=== PATIENT | male | born 1990 | race Caucasian/White ===

== ENCOUNTER 2016-08-23 19:13 | Emergency (ER) | payer OTHER ==
[2016-08-23] MEDS ORDERED: ONDANSETRON 4MG/2ML VIAL (J2405) As Ordered ONE (20:40)
[2016-08-23 21:03] LABS: BASO % 0.2 % (0.0-1.0); EOS # 0.1 K/mm3 (0.0-0.50); EOS % 0.4 % (0.0-3.0); LARGE UNSTAINED CELL # 0.1 K/mm3 (0.0-0.4); LARGE UNSTAINED CELL % 0.8 % (0.0-4.0); LYMPH # 0.6 K/mm3 (1.5-6.5); LYMPH % 4.8 % (24.0-44.0); MEAN CORPUSCULAR HEMOGLOBIN 32.7 pg (27.0-33.0); MEAN CORPUSCULAR HGB CONC 35.7 g/dl (32.0-36.5); MEAN CORPUSCULAR VOLUME 91.7 fl (80.0-96.0); MONO # 0.5 K/mm3 (0.0-0.8); MONO % 3.9 % (0.0-5.0); NEUTROPHILS % 89.9 % (36.0-66.0); PLATELET COUNT, AUTOMATED 323 k/mm3 (150-450); RED CELL DISTRIBUTION WIDTH 11.8 % (11.5-14.5); WHITE BLOOD COUNT 13.4 K/mm3 (4.0-10.0)
[2016-08-23 21:45] LABS: ANION GAP 10 MEQ/L (8-16); BLOOD UREA NITROGEN 18 MG/DL (7-18); CALCIUM LEVEL 10.5 MG/DL (8.5-10.1); CARBON DIOXIDE LEVEL 26 MEQ/L (21-32); CHLORIDE LEVEL 106 MEQ/L (98-107); CREATININE FOR GFR 1.23 MG/DL (0.70-1.30); GLOMERULAR FILTRATION RATE > 60.0 (>60); GLUCOSE, FASTING 106 MG/DL (70-105); SODIUM LEVEL 142 MEQ/L (136-145)
--- NOTE | 2016-08-23 22:51 | EDDOCDS ---
Nurse's Notes [facility] Name: Cheko Rousseau Age: 25 yrs Sex: Male : 1990 Arrival Date: 08/23/2016 Time: 19:13 Bed 17 Private MD: Joel Ernandez [facility] Diagnosis: Other and unspecified noninfective gastroenteritis and colitis Presentation: 08/23 19:28 Presenting complaint: Patient states: Nausea, vomiting and diarrhea for the past ko2 24hours. Recently returned from [place] last night for a wedding this past Monday. Per pt people from the wedding are also vomiting. Adult Sepsis Screening: The patient does not have new or worsening altered mentation. Patient's respiratory rate is less than 22. Systolic blood pressure is greater than 100. Patient has a qSOFA score of 0- Negative Sepsis Screen. Suicide/Homicide risk assessment- the patient denies having any suicidal and/or homicidal ideations and does not present with any other emotional, behavioral or mental health complaints. 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 Transition of care: patient was not received from another setting of care. Care prior to arrival: See EMS report. 19:28 Acuity: GANESH Level 3 ko2 19:28 Method Of Arrival: Ambulance ko2 Triage Assessment: 19:32 General: Appears in no apparent distress. Pain: Denies pain. Pt Declines HIV testing. ko2 The patient is triaged at the bedside. See Assessment in Nurses Notes section of ED record. Neurological: No deficits noted. Respiratory: Airway is patent Respiratory effort is even, unlabored, Respiratory pattern is regular. GI: No deficits noted. Abdomen is non- distended Reports diarrhea, nausea, vomiting. Derm: Skin is normal. Musculoskeletal: Range of motion intact in all extremities. Historical: - Allergies: No known drug Allergies; - Home Meds: 1. lidocaine patch 2. naproxen 500 mg Oral tab 3. Tylenol 325 mg Oral tab 2 tabs every 4-6 hours - PMHx: back pain; - PSHx: Knee surgery- Left; Knee surgery- Right; - Social history: Smoking status: Patient states former smoker of tobacco. No barriers to communication noted, The patient speaks fluent Kiswahili, Speaks appropriately for age. - Family history: Not pertinent. - : The pt / caregiver states he / she is not on anticoagulants. Home medication list is obtained from the patient. - Exposure Risk Screening:: None identified. Screenin:34 Screening information is obtained from the patient. Fall risk: No risks identified. ko2 Assistance ADL's: requires no assistance with activities of daily living. Abuse/DV Screen: The patient / caregiver reports he/she is: not in a situation that causes fear, pain or injury. Nutritional screening: No deficits noted. Advance Directives: Currently, there is no health care proxy. There is no active DNR order. There is no living will. There is no Power of Control Room Supervisor. home support is adequate. Assessment: 19:34 General: See triage assessment. ko2 20:38 General: Appears in no apparent distress, Behavior is cooperative. Neurological: Level af2 of Consciousness is awake, alert, obeys commands. Respiratory: Airway is patent Respiratory effort is even, unlabored. GI: Abdomen is non- distended Bowel sounds present X 4 quads. Abd is soft and non tender X 4 quads. Reports cramping, diarrhea, upper abd pain, nausea, vomiting. Derm: Skin is pale. 21:14 General: Appears in no apparent distress, Behavior is cooperative. Neurological: Level ko2 of Consciousness is awake, alert, obeys commands. Respiratory: No deficits noted. GI:. Derm: Skin is pale. 22:48 General: Appears in no apparent distress, Behavior is cooperative. Pain: Location: ko2 abdomen. Neurological: Level of Consciousness is awake, alert, obeys commands. Respiratory: No deficits noted. GI: Abdomen is non- distended. Derm: Skin is pale. Vital Signs: 19:26 BP 141 / 89; Pulse 108; Resp 20; Temp 98.8(O); Pulse Ox 93% on R/A; Weight 83.91 kg; ls3 Height 71 in. (180.34 cm); Pain 6/10; 22:36 BP 132 / 84; Pulse 87; Resp 18; Temp 99.3(O); Pulse Ox 100% on R/A; Pain 0/10; kathie 19:26 Body Mass Index 25.80 (83.91 kg, 180.34 cm) ls3 Vitals: 19:35 Log In Time N/A - ambulance arrival. ko2 ED Course: 19:15 Patient visited by Teddy Goff, Nailer Operator. ml3 19:15 [facility] is Private Physician. ml3 19:15 Patient moved to Waiting ml3 19:16 Mark Lang RN is Primary Nurse. ml3 19:16 Patient moved to 17 ml3 19:25 Mark Dior DO is Attending Physician. mm11 19:25 Patient visited by Mark Dior DO. mm11 19:27 Patient visited by Meredith Romero PCA. ls3 19:29 Triage Initiated ko2 19:42 Patient visited by Mark Dior DO. mm11 20:01 Jennifer Persaud,NATALIA is Primary Nurse. ko2 20:07 Primary Nurse role handed off by Mark Lang RN sls1 20:38 Patient visited by Yessenia Ferrari RN. af2 20:38 BMP Sent. af2 20:38 CBC with Diff Sent. af2 20:39 Patient visited by Yessenia Ferrari RN. af2 20:39 Inserted saline lock: 20 gauge in right antecubital area and blood collected. The af2 patient tolerated the procedure well. 21:15 Patient visited by Jennifer Persaud RN. ko2 22:15 Patient visited by Jennifer Persaud RN. ko2 22:19 [facility] is Referral Physician. mm11 22:37 Patient visited by Reena Olivera PCA. kathie 22:49 The patient / caregiver is instructed regarding the plan of care and ED course. ko2 22:49 Discontinued lock intact, bleeding controlled, pressure dressing applied, No ko2 redness/swelling at site. No procedures done that require assistance. Administered Medications: 20:38 Drug: LR 1000 ml [lactated ringers intravenous solution] Route: IV; Rate: bolus; Site: af2 right antecubital; 20:47 Drug: Ondansetron 4 mg [ondansetron HCl 2 mg/mL intravenous solution (2 mL)] Route: af2 IVP; Site: right antecubital; 21:15 Follow up: Response: Nausea is decreased ko2 Order Results: Lab Order: CBC with Diff; SPEC'M 08/23/16 20:36 Test: WHITE BLOOD COUNT; Value: 13.4; Range: 4.0-10.0; Abnormal: Above high normal; Units: K/mm3; Status: F Test: RED BLOOD COUNT; Value: 5.63; Range: 4.30-6.10; Units: M/mm3; Status: F Test: HEMOGLOBIN; Value: 18.4; Range: 14.0-18.0; Abnormal: Above high normal; Units: g/dl; Status: F Test: HEMATOCRIT; Value: 51.6; Range: 42.0-52.0; Units: %; Status: F Test: MEAN CORPUSCULAR VOLUME; Value: 91.7; Range: 80.0-96.0; Units: fl; Status: F Test: MEAN CORPUSCULAR HEMOGLOBIN; Value: 32.7; Range: 27.0-33.0; Units: pg; Status: F Test: MEAN CORPUSCULAR HGB CONC; Value: 35.7; Range: 32.0-36.5; Units: g/dl; Status: F Test: RED CELL DISTRIBUTION WIDTH; Value: 11.8; Range: 11.5-14.5; Units: %; Status: F Test: PLATELET COUNT, AUTOMATED; Value: 323; Range: 150-450; Units: k/mm3; Status: F Test: NEUTROPHILS %; Value: 89.9; Range: 36.0-66.0; Abnormal: Above high normal; Units: %; Status: F Test: LYMPH %; Value: 4.8; Range: 24.0-44.0; Abnormal: Below low normal; Units: %; Status: F Test: MONO %; Value: 3.9; Range: 0.0-5.0; Units: %; Status: F Test: EOS %; Value: 0.4; Range: 0.0-3.0; Units: %; Status: F Test: BASO %; Value: 0.2; Range: 0.0-1.0; Units: %; Status: F Test: LARGE UNSTAINED CELL %; Value: 0.8; Range: 0.0-4.0; Units: %; Status: F Test: NEUTROPHILS #; Value: 12.0; Range: 1.8-7.7; Abnormal: Above high normal; Units: K/mm3; Status: F Test: LYMPH #; Value: 0.6; Range: 1.5-6.5; Abnormal: Below low normal; Units: K/mm3; Status: F Test: MONO #; Value: 0.5; Range: 0.0-0.8; Units: K/mm3; Status: F Test: EOS #; Value: 0.1; Range: 0.0-0.50; Units: K/mm3; Status: F Test: BASO #; Value: 0.0; Range: 0.0-0.2; Units: K/mm3; Status: F Test: LARGE UNSTAINED CELL #; Value: 0.1; Range: 0.0-0.4; Units: K/mm3; Status: F Lab Order: BMP; SPEC'M 08/23/16 20:36 Test: GLUCOSE, FASTING; Value: 106; Range: 70-105; Abnormal: Above high normal; Units: MG/DL; Status: F Test: BLOOD UREA NITROGEN; Value: 18; Range: 7-18; Units: MG/DL; Status: F Test: CREATININE FOR GFR; Value: 1.23; Range: 0.70-1.30; Units: MG/DL; Status: F Test: GLOMERULAR FILTRATION RATE; Value: > 60.0; Range: >60; Status: F Test: SODIUM LEVEL; Value: 142; Range: 136-145; Units: MEQ/L; Status: F Test: POTASSIUM SERUM; Value: 4.0; Range: 3.5-5.1; Units: MEQ/L; Status: F Test: CHLORIDE LEVEL; Value: 106; Range: 98-107; Units: MEQ/L; Status: F Test: CARBON DIOXIDE LEVEL; Value: 26; Range: 21-32; Units: MEQ/L; Status: F Test: ANION GAP; Value: 10; Range: 8-16; Units: MEQ/L; Status: F Test: CALCIUM LEVEL; Value: 10.5; Range: 8.5-10.1; Abnormal: Above high normal; Units: MG/DL; Status: F Test Note: ; Units are mL/min/1.73 m2 Chronic Kidney Disease Staging per NKF: Stage I & II GFR >=60 Normal to Mildly Decreased Stage III GFR 30-59 Moderately Decreased Stage IV GFR 15-29 Severely Decreased Stage V GFR <15 Very Little GFR Left ESRD GFR <15 on END FRAZER Outcome: 22:20 Discharge ordered by Provider. mm11 22:49 Discharge Assessment: Patient awake, alert and oriented x 3. No cognitive and/or ko2 functional deficits noted. Patient verbalized understanding of disposition instructions. patient administered narcotics - no. The following High Risk Discharge criteria are identified: None. Discharged to home ambulatory, with significant other. Condition: stable. Discharge instructions given to patient, Instructed on discharge instructions, follow up and referral plans. medication usage, Demonstrated understanding of instructions, medications, Pt was receptive of discharge instructions/ teaching. Prescriptions given X 1. No special radiology studies were completed. Property sent home with patient. 22:50 Patient left the ED. ko2 Signatures: Teddy Goff, Nailer Operator Unit ml3 Mark Dior, DO mm11 Reena Olivera, RUBBER GOODS CUTTER FINISHER RUBBER GOODS CUTTER FINISHER kathie Louise Stubbs, RN RN sls1 Jennifer Persaud,NATALIA RN ko2 Yessenia FerrariRN RN af2 Meredith Romero, RUBBER GOODS CUTTER FINISHER RUBBER GOODS CUTTER FINISHER ls3 MTDD
--- NOTE | 2016-08-23 22:51 | EDDOCDS ---
Physician Documentation [facility] Name: Cheko Rousseau Age: 25 yrs Sex: Male : 1990 Arrival Date: 08/23/2016 Time: 19:13 Bed 17 Private MD: Joel Ernandez [facility] Disposition: 08/23/16 22:20 Discharged to Home/Self Care. Impression: Other and unspecified noninfective gastroenteritis and colitis. - Condition is Stable. - Discharge Instructions: Food Poisoning, Food Poisoning, [id number]. - Prescriptions for ZOFRAN ODT 4 mg - dissolve 1 tablet by ORAL route 4 times per day As needed do not chew, do not swallow whole; 10 tablet. - Medication Reconciliation, Local Pharmacy Hours form. - Follow up: Joel Ernandez [facility]; When: As needed; Reason: Continuance of care. - Problem is an acute exacerbation. - Symptoms have improved. Historical: - Allergies: No known drug Allergies; - Home Meds: 1. lidocaine patch 2. naproxen 500 mg Oral tab 3. Tylenol 325 mg Oral tab 2 tabs every 4-6 hours - PMHx: back pain; - PSHx: Knee surgery- Left; Knee surgery- Right; - Social history: Smoking status: Patient states former smoker of tobacco. No barriers to communication noted, The patient speaks fluent Mongolian, Speaks appropriately for age. - Family history: Not pertinent. - : The pt / caregiver states he / she is not on anticoagulants. Home medication list is obtained from the patient. - Exposure Risk Screening:: None identified. Vital Signs: 08/23 19:26 BP 141 / 89; Pulse 108; Resp 20; Temp 98.8(O); Pulse Ox 93% on R/A; Weight 83.91 kg / ls3 184.99 lbs; Height 71 in. (180.34 cm); Pain 6/10; 22:36 BP 132 / 84; Pulse 87; Resp 18; Temp 99.3(O); Pulse Ox 100% on R/A; Pain 0/10; kathie 19:26 Body Mass Index 25.80 (83.91 kg, 180.34 cm) ls3 MDM: 19:41 IV Saline Lock ordered. mm11 19:41 LR Solution 1000 ml IV at bolus once ordered. mm11 19:41 Ondansetron 4 mg IVP once ordered. mm11 19:43 CBC with Diff Ordered. EDMS 19:43 BMP Ordered. EDMS 21:10 CBC with Diff Reviewed. mm11 21:52 BMP Reviewed. mm11 22:01 Financial registration complete. gjrachelle Administered Medications: 20:38 Drug: LR 1000 ml [lactated ringers intravenous solution] Route: IV; Rate: bolus; Site: af2 right antecubital; 20:47 Drug: Ondansetron 4 mg [ondansetron HCl 2 mg/mL intravenous solution (2 mL)] Route: af2 IVP; Site: right antecubital; 21:15 Follow up: Response: Nausea is decreased ko2 Signatures: Dispatcher [employer] EDMS Mark Dior DO DO mm11 Jennifer Persaud RN RN ko2 Emmy Augustb Yessenia Ferrari RN af2 POPEYE
--- NOTE | 2016-08-25 23:51 | EDDOCDS ---
Nurse's Notes [facility] Name: Cheko Rousseau Age: 25 yrs Sex: Male : 1990 Arrival Date: 08/23/2016 Time: 19:13 Bed 17 Private MD: Joel Ernandez [facility] Diagnosis: Other and unspecified noninfective gastroenteritis and colitis Presentation: 08/23 19:28 Presenting complaint: Patient states: Nausea, vomiting and diarrhea for the past ko2 24hours. Recently returned from [place] last night for a wedding this past Monday. Per pt people from the wedding are also vomiting. Adult Sepsis Screening: The patient does not have new or worsening altered mentation. Patient's respiratory rate is less than 22. Systolic blood pressure is greater than 100. Patient has a qSOFA score of 0- Negative Sepsis Screen. Suicide/Homicide risk assessment- the patient denies having any suicidal and/or homicidal ideations and does not present with any other emotional, behavioral or mental health complaints. 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 Transition of care: patient was not received from another setting of care. Care prior to arrival: See EMS report. 19:28 Acuity: GANESH Level 3 ko2 19:28 Method Of Arrival: Ambulance ko2 Triage Assessment: 19:32 General: Appears in no apparent distress. Pain: Denies pain. Pt Declines HIV testing. ko2 The patient is triaged at the bedside. See Assessment in Nurses Notes section of ED record. Neurological: No deficits noted. Respiratory: Airway is patent Respiratory effort is even, unlabored, Respiratory pattern is regular. GI: No deficits noted. Abdomen is non- distended Reports diarrhea, nausea, vomiting. Derm: Skin is normal. Musculoskeletal: Range of motion intact in all extremities. Historical: - Allergies: No known drug Allergies; - Home Meds: 1. lidocaine patch 2. naproxen 500 mg Oral tab 3. Tylenol 325 mg Oral tab 2 tabs every 4-6 hours - PMHx: back pain; - PSHx: Knee surgery- Left; Knee surgery- Right; - Social history: Smoking status: Patient states former smoker of tobacco. No barriers to communication noted, The patient speaks fluent Turkish, Speaks appropriately for age. - Family history: Not pertinent. - : The pt / caregiver states he / she is not on anticoagulants. Home medication list is obtained from the patient. - Exposure Risk Screening:: None identified. Screenin:34 Screening information is obtained from the patient. Fall risk: No risks identified. ko2 Assistance ADL's: requires no assistance with activities of daily living. Abuse/DV Screen: The patient / caregiver reports he/she is: not in a situation that causes fear, pain or injury. Nutritional screening: No deficits noted. Advance Directives: Currently, there is no health care proxy. There is no active DNR order. There is no living will. There is no Power of Curb Setter. home support is adequate. Assessment: 19:34 General: See triage assessment. ko2 20:38 General: Appears in no apparent distress, Behavior is cooperative. Neurological: Level af2 of Consciousness is awake, alert, obeys commands. Respiratory: Airway is patent Respiratory effort is even, unlabored. GI: Abdomen is non- distended Bowel sounds present X 4 quads. Abd is soft and non tender X 4 quads. Reports cramping, diarrhea, upper abd pain, nausea, vomiting. Derm: Skin is pale. 21:14 General: Appears in no apparent distress, Behavior is cooperative. Neurological: Level ko2 of Consciousness is awake, alert, obeys commands. Respiratory: No deficits noted. GI:. Derm: Skin is pale. 22:48 General: Appears in no apparent distress, Behavior is cooperative. Pain: Location: ko2 abdomen. Neurological: Level of Consciousness is awake, alert, obeys commands. Respiratory: No deficits noted. GI: Abdomen is non- distended. Derm: Skin is pale. Vital Signs: 19:26 BP 141 / 89; Pulse 108; Resp 20; Temp 98.8(O); Pulse Ox 93% on R/A; Weight 83.91 kg; ls3 Height 71 in. (180.34 cm); Pain 6/10; 22:36 BP 132 / 84; Pulse 87; Resp 18; Temp 99.3(O); Pulse Ox 100% on R/A; Pain 0/10; kathie 19:26 Body Mass Index 25.80 (83.91 kg, 180.34 cm) ls3 Vitals: 19:35 Log In Time N/A - ambulance arrival. ko2 ED Course: 19:15 Patient visited by Teddy Goff, Campaign Assistant. ml3 19:15 [facility] is Private Physician. ml3 19:15 Patient moved to Waiting ml3 19:16 Mark Lang RN is Primary Nurse. ml3 19:16 Patient moved to 17 ml3 19:25 Mark Dior DO is Attending Physician. mm11 19:25 Patient visited by Mark Dior DO. mm11 19:27 Patient visited by Meredith Romero PCA. ls3 19:29 Triage Initiated ko2 19:42 Patient visited by Mark Dior DO. mm11 20:01 Jennifer Persaud,NATALIA is Primary Nurse. ko2 20:07 Primary Nurse role handed off by Mark Lang RN sls1 20:38 Patient visited by Yessenia Ferrari RN. af2 20:38 BMP Sent. af2 20:38 CBC with Diff Sent. af2 20:39 Patient visited by Yessenia Ferrari RN. af2 20:39 Inserted saline lock: 20 gauge in right antecubital area and blood collected. The af2 patient tolerated the procedure well. 21:15 Patient visited by Jennifer Persaud RN. ko2 22:15 Patient visited by Jennifer Persaud RN. ko2 22:19 [facility] is Referral Physician. mm11 22:37 Patient visited by Reena Olivera PCA. kathie 22:49 The patient / caregiver is instructed regarding the plan of care and ED course. ko2 22:49 Discontinued lock intact, bleeding controlled, pressure dressing applied, No ko2 redness/swelling at site. No procedures done that require assistance. 23:27 [facility] [place] was scanned into [employer] and attached to record. ks16 08/24 12:03 T-Sheet-- Draft Copy was scanned into [employer] and attached to record. gb Administered Medications: 08/23 20:38 Drug: LR 1000 ml [lactated ringers intravenous solution] Route: IV; Rate: bolus; Site: af2 right antecubital; 20:47 Drug: Ondansetron 4 mg [ondansetron HCl 2 mg/mL intravenous solution (2 mL)] Route: af2 IVP; Site: right antecubital; 21:15 Follow up: Response: Nausea is decreased ko2 Order Results: Lab Order: CBC with Diff; SPEC'M 08/23/16 20:36 Test: WHITE BLOOD COUNT; Value: 13.4; Range: 4.0-10.0; Abnormal: Above high normal; Units: K/mm3; Status: F Test: RED BLOOD COUNT; Value: 5.63; Range: 4.30-6.10; Units: M/mm3; Status: F Test: HEMOGLOBIN; Value: 18.4; Range: 14.0-18.0; Abnormal: Above high normal; Units: g/dl; Status: F Test: HEMATOCRIT; Value: 51.6; Range: 42.0-52.0; Units: %; Status: F Test: MEAN CORPUSCULAR VOLUME; Value: 91.7; Range: 80.0-96.0; Units: fl; Status: F Test: MEAN CORPUSCULAR HEMOGLOBIN; Value: 32.7; Range: 27.0-33.0; Units: pg; Status: F Test: MEAN CORPUSCULAR HGB CONC; Value: 35.7; Range: 32.0-36.5; Units: g/dl; Status: F Test: RED CELL DISTRIBUTION WIDTH; Value: 11.8; Range: 11.5-14.5; Units: %; Status: F Test: PLATELET COUNT, AUTOMATED; Value: 323; Range: 150-450; Units: k/mm3; Status: F Test: NEUTROPHILS %; Value: 89.9; Range: 36.0-66.0; Abnormal: Above high normal; Units: %; Status: F Test: LYMPH %; Value: 4.8; Range: 24.0-44.0; Abnormal: Below low normal; Units: %; Status: F Test: MONO %; Value: 3.9; Range: 0.0-5.0; Units: %; Status: F Test: EOS %; Value: 0.4; Range: 0.0-3.0; Units: %; Status: F Test: BASO %; Value: 0.2; Range: 0.0-1.0; Units: %; Status: F Test: LARGE UNSTAINED CELL %; Value: 0.8; Range: 0.0-4.0; Units: %; Status: F Test: NEUTROPHILS #; Value: 12.0; Range: 1.8-7.7; Abnormal: Above high normal; Units: K/mm3; Status: F Test: LYMPH #; Value: 0.6; Range: 1.5-6.5; Abnormal: Below low normal; Units: K/mm3; Status: F Test: MONO #; Value: 0.5; Range: 0.0-0.8; Units: K/mm3; Status: F Test: EOS #; Value: 0.1; Range: 0.0-0.50; Units: K/mm3; Status: F Test: BASO #; Value: 0.0; Range: 0.0-0.2; Units: K/mm3; Status: F Test: LARGE UNSTAINED CELL #; Value: 0.1; Range: 0.0-0.4; Units: K/mm3; Status: F Lab Order: [facility]; SPEC'M 08/23/16 20:36 Test: GLUCOSE, FASTING; Value: 106; Range: 70-105; Abnormal: Above high normal; Units: MG/DL; Status: F Test: BLOOD UREA NITROGEN; Value: 18; Range: 7-18; Units: MG/DL; Status: F Test: CREATININE FOR GFR; Value: 1.23; Range: 0.70-1.30; Units: MG/DL; Status: F Test: GLOMERULAR FILTRATION RATE; Value: > 60.0; Range: >60; Status: F Test: SODIUM LEVEL; Value: 142; Range: 136-145; Units: MEQ/L; Status: F Test: POTASSIUM SERUM; Value: 4.0; Range: 3.5-5.1; Units: MEQ/L; Status: F Test: CHLORIDE LEVEL; Value: 106; Range: 98-107; Units: MEQ/L; Status: F Test: CARBON DIOXIDE LEVEL; Value: 26; Range: 21-32; Units: MEQ/L; Status: F Test: ANION GAP; Value: 10; Range: 8-16; Units: MEQ/L; Status: F Test: CALCIUM LEVEL; Value: 10.5; Range: 8.5-10.1; Abnormal: Above high normal; Units: MG/DL; Status: F Test Note: ; Units are mL/min/1.73 m2 Chronic Kidney Disease Staging per NKF: Stage I & II GFR >=60 Normal to Mildly Decreased Stage III GFR 30-59 Moderately Decreased Stage IV GFR 15-29 Severely Decreased Stage V GFR <15 Very Little GFR Left ESRD GFR <15 on CORE FINISHER Outcome: 22:20 Discharge ordered by Provider. mm11 22:49 Discharge Assessment: Patient awake, alert and oriented x 3. No cognitive and/or ko2 functional deficits noted. Patient verbalized understanding of disposition instructions. patient administered narcotics - no. The following High Risk Discharge criteria are identified: None. Discharged to home ambulatory, with significant other. Condition: stable. Discharge instructions given to patient, Instructed on discharge instructions, follow up and referral plans. medication usage, Demonstrated understanding of instructions, medications, Pt was receptive of discharge instructions/ teaching. Prescriptions given X 1. No special radiology studies were completed. Property sent home with patient. 22:50 Patient left the ED. ko2 Signatures: Kianna Land, Reg Reg gb [employer] cantorbeth, Campaign Assistant Unit ml3 Mark Dior, DO mm11 Reena Olivera, CHILD ATTENDANT CHILD ATTENDANT kathie Louise Stubbs, RN RN sls1 Jennifer Persaud RN RN ko2 Yessenia Ferrari,RN RN af2 Meredith Romero, CHILD ATTENDANT CHILD ATTENDANT ls3 Adrianne Larsen, Reg Reg ks16 Chart Complete MTDD
--- NOTE | 2016-08-25 23:51 | EDDOCDS ---
Physician Documentation [facility] Name: Cheko Rousseau Age: 25 yrs Sex: Male : 1990 Arrival Date: 08/23/2016 Time: 19:13 Bed 17 Private MD: Joel Ernandez [facility] Disposition: 08/23/16 22:20 Discharged to Home/Self Care. Impression: Other and unspecified noninfective gastroenteritis and colitis. - Condition is Stable. - Discharge Instructions: Food Poisoning, Food Poisoning, [id number]. - Prescriptions for ZOFRAN ODT 4 mg - dissolve 1 tablet by ORAL route 4 times per day As needed do not chew, do not swallow whole; 10 tablet. - Medication Reconciliation, Local Pharmacy Hours form. - Follow up: Joel Ernandez [facility]; When: As needed; Reason: Continuance of care. - Problem is an acute exacerbation. - Symptoms have improved. Historical: - Allergies: No known drug Allergies; - Home Meds: 1. lidocaine patch 2. naproxen 500 mg Oral tab 3. Tylenol 325 mg Oral tab 2 tabs every 4-6 hours - PMHx: back pain; - PSHx: Knee surgery- Left; Knee surgery- Right; - Social history: Smoking status: Patient states former smoker of tobacco. No barriers to communication noted, The patient speaks fluent [place] Island[place], Speaks appropriately for age. - Family history: Not pertinent. - : The pt / caregiver states he / she is not on anticoagulants. Home medication list is obtained from the patient. - Exposure Risk Screening:: None identified. Vital Signs: 08/23 19:26 BP 141 / 89; Pulse 108; Resp 20; Temp 98.8(O); Pulse Ox 93% on R/A; Weight 83.91 kg / ls3 184.99 lbs; Height 71 in. (180.34 cm); Pain 6/10; 22:36 BP 132 / 84; Pulse 87; Resp 18; Temp 99.3(O); Pulse Ox 100% on R/A; Pain 0/10; kathie 19:26 Body Mass Index 25.80 (83.91 kg, 180.34 cm) ls3 MDM: 19:41 IV Saline Lock ordered. mm11 19:41 LR Solution 1000 ml IV at bolus once ordered. mm11 19:41 Ondansetron 4 mg IVP once ordered. mm11 19:43 CBC with Diff Ordered. EDMS 19:43 BMP Ordered. EDMS 21:10 CBC with Diff Reviewed. mm11 21:52 BMP Reviewed. 11 22:01 Financial registration complete. [email or web address] 23:27 [facility] Payment Agreement was scanned into [employer] and attached to record. [facility] 08/24 12:03 T-Sheet-- Draft Copy was scanned into [employer] and attached to record. gb Administered Medications: 08/23 20:38 Drug: LR 1000 ml [lactated ringers intravenous solution] Route: IV; Rate: bolus; Site: af2 right antecubital; 20:47 Drug: Ondansetron 4 mg [ondansetron HCl 2 mg/mL intravenous solution (2 mL)] Route: af2 IVP; Site: right antecubital; 21:15 Follow up: Response: Nausea is decreased ko2 Signatures: Dispatcher [employer] EDMS Kianna Land, Reg Reg gb Mark Dior, DO mm11 Jennifer Persaud RN RN ko2 Emmy August gjb Adrianne Larsen, Reg Reg ks16 Yessenia Ferrari RN af2 The chart was reviewed and I authenticate all verbal orders and agree with the evaluation and treatment provided.Attachments: 23:27 [facility] Payment Agreement 08/24 12:03 T-Sheet-- Draft Copy gb Chart Complete MTDD
--- NOTE | 2016-08-25 23:51 | EDDOCDS ---
Physician Documentation [facility] Name: Cheko Rousseau Age: 25 yrs Sex: Male : 1990 Arrival Date: 08/23/2016 Time: 19:13 Bed 17 Private MD: Joel Ernandez [facility] Disposition: 08/23/16 22:20 Discharged to Home/Self Care. Impression: Other and unspecified noninfective gastroenteritis and colitis. - Condition is Stable. - Discharge Instructions: Food Poisoning, Food Poisoning, [id number]. - Prescriptions for ZOFRAN ODT 4 mg - dissolve 1 tablet by ORAL route 4 times per day As needed do not chew, do not swallow whole; 10 tablet. - Medication Reconciliation, Local Pharmacy Hours form. - Follow up: Joel Ernandez [facility]; When: As needed; Reason: Continuance of care. - Problem is an acute exacerbation. - Symptoms have improved. Historical: - Allergies: No known drug Allergies; - Home Meds: 1. lidocaine patch 2. naproxen 500 mg Oral tab 3. Tylenol 325 mg Oral tab 2 tabs every 4-6 hours - PMHx: back pain; - PSHx: Knee surgery- Left; Knee surgery- Right; - Social history: Smoking status: Patient states former smoker of tobacco. No barriers to communication noted, The patient speaks fluent Barbadian, Speaks appropriately for age. - Family history: Not pertinent. - : The pt / caregiver states he / she is not on anticoagulants. Home medication list is obtained from the patient. - Exposure Risk Screening:: None identified. Vital Signs: 08/23 19:26 BP 141 / 89; Pulse 108; Resp 20; Temp 98.8(O); Pulse Ox 93% on R/A; Weight 83.91 kg / ls3 184.99 lbs; Height 71 in. (180.34 cm); Pain 6/10; 22:36 BP 132 / 84; Pulse 87; Resp 18; Temp 99.3(O); Pulse Ox 100% on R/A; Pain 0/10; kathie 19:26 Body Mass Index 25.80 (83.91 kg, 180.34 cm) ls3 MDM: 19:41 IV Saline Lock ordered. mm11 19:41 LR Solution 1000 ml IV at bolus once ordered. mm11 19:41 Ondansetron 4 mg IVP once ordered. mm11 19:43 CBC with Diff Ordered. EDMS 19:43 BMP Ordered. EDMS 21:10 CBC with Diff Reviewed. mm11 21:52 BMP Reviewed. 11 22:01 Financial registration complete. [email or web address] 23:27 [facility] Payment Agreement was scanned into [employer] and attached to record. [facility] 08/24 12:03 T-Sheet-- Draft Copy was scanned into [employer] and attached to record. gb Administered Medications: 08/23 20:38 Drug: LR 1000 ml [lactated ringers intravenous solution] Route: IV; Rate: bolus; Site: af2 right antecubital; 20:47 Drug: Ondansetron 4 mg [ondansetron HCl 2 mg/mL intravenous solution (2 mL)] Route: af2 IVP; Site: right antecubital; 21:15 Follow up: Response: Nausea is decreased ko2 Signatures: Dispatcher [employer] EDMS Kianna Land, Reg Reg gb Mark Dior, DO mm11 Jennifer Persaud RN RN ko2 Emmy August gjb Adrianne Larsen, Reg Reg ks16 Yessenia Ferrari RN af2 The chart was reviewed and I authenticate all verbal orders and agree with the evaluation and treatment provided.Attachments: 23:27 [facility] Payment Agreement 08/24 12:03 T-Sheet-- Draft Copy gb Chart Complete MTDD
== END 2016-08-23 22:50 | disposition home or self-care (01) ==
LOC: M ED 19:13
DX: K52.9 Noninfective gastroenteritis and colitis, unspecified (principal); M54.9 Dorsalgia, unspecified; Z87.891 Personal history of nicotine dependence
CPT/HCPCS: 36415; 80048; 85025; 96374; 99284; J2405